=== PATIENT | female | born 1955 | race Caucasian/White ===

== ENCOUNTER 2016-07-16 00:41 | Emergency (ER) | payer MEDICARE, OTHER ==
[~2016-07-16] VITALS: Ht 172.7 cm; Wt 110.0 kg
[2016-07-16 00:41] VITALS: Ht 172.7 cm; Wt 110.0 kg
[2016-07-16] MEDS ORDERED: PROPOFOL 100 ML IV STA (00:50)
[2016-07-16] MEDS ORDERED: SUCCINYLCHOLINE CHLORIDE 100 MG/5 ML SYG IV STA (00:50)
[2016-07-16] MEDS ORDERED: SOD CHLORIDE 0.9% 1,000 ML IV STA (00:50)
[2016-07-16] MEDS ORDERED: ETOMIDATE 20 MG INJ IV STA (00:50)
[2016-07-16 00:57] LABS: ADD SCAN DIFF NO
[2016-07-16 00:59] LABS: ABNORMAL IP MESSAGE 1; BASOPHILS % 0.2 % (0.0-2.0); EOSINOPHILS # 0.3 10^3/ul (0.0-0.5); EOSINOPHILS % 2.1 % (0.0-7.0); HEMATOCRIT 44.3 % (37.0-47.0); LYMPHOCYTES # 7.6 10^3/ul (0.8-2.9); LYMPHOCYTES % 58.8 % (15.0-51.0); MEAN CORPUSCULAR HEMOGLOBIN 31.3 pg (29.0-33.0); MEAN CORPUSCULAR HGB CONC 31.6 g/dl (32.0-37.0); MEAN CORPUSCULAR VOLUME 98.9 fl (82.0-101.0); MEAN PLATELET VOLUME 9.6 fl (7.4-10.4); MONOCYTE # 0.7 10^3/ul (0.3-0.9); MONOCYTES % 5.4 % (0.0-11.0); NEUTROPHIL # 4.3 10^3/ul (1.6-7.5); NEUTROPHILS % 33.3 % (39.0-77.0); PLATELET COUNT 236 10^3/UL (140-415); RED BLOOD COUNT 4.48 10^6/ul (4.20-5.40); RED CELL DISTRIBUTION WIDTH 14.1 % (11.5-14.5); WHITE BLOOD COUNT 12.9 10^3/ul (4.8-10.8)
[2016-07-16 01:05] LABS: INR 1.17; PT RATIO 1.2
[2016-07-16 01:06] LABS: PARTIAL THROMBOPLASTIN TIME 44.2 Sec (25.0-35.0)
--- NOTE | 2016-07-16 01:10 | RADRPT ---
PROCEDURE: CT brain without contrast. CLINICAL INDICATION: Stroke. TECHNIQUE: CT scan of the brain was performed on a multi-detector high-resolution CT scanner. Co ntiguous axial images were obtained from the skull base to the vertex without intravenous contrast. Coronal and sagittal reformatted images were also obtained. Images were reviewed on the PACS works tation. One or more of the following dose reduction techniques were used: - Automated exposure control. - Adjustment of the mA and/or kV according to patient size. - Use of iterative reconstruction technique. Exam CTD/vol = 44.58 mGy. Total exam DLP = 810.25 mGy-cm. COMPARISON: None. FINDINGS: The ventricles and cortical sulci are within normal limits for patient's age. There are no areas of abnormal attenuation within the brain parenchyma. There is no mass effect or midline shift. There is no intracranial hemorrhage or abnormal extra-axial collection. The calvarium is intact. There is no evidence of fracture. There is an opacified right posterior eth moid air cell. There is no mastoid air cells are clear. IMPRESSION: No acute intracranial abnormality identified. A call report was made to Dr. Cruz at 01:06 a.m. .Gab Echols MD, Date Time Electronically viewed and signed by .Gab Echols MD, MD on 07/16/2016 01:09 .T/
[2016-07-16 01:19] LABS: ALBUMIN 4.2 g/dl (3.3-4.9); CHLORIDE 102 mmol/L (97-110)
[2016-07-16 01:20] LABS: SODIUM 138 mmol/L (135-144)
[2016-07-16 01:22] LABS: ALBUMIN/GLOBULIN RATIO 1.16; ANION GAP 18 (8-16); ASPARTATE AMINO TRANSFERASE 38 IU/L (15-46); BILIRUBIN,INDIRECT 0.3 mg/dl (0-1.1); BILIRUBIN,TOTAL 0.3 mg/dl (0.2-1.3); CARBON DIOXIDE 22 mmol/L (21-31); CHOLESTEROL 146 mg/dl (100-200); CREATININE 0.83 mg/dl (0.44-1.00); TOTAL PROTEIN 7.8 g/dl (6.1-8.1)
[2016-07-16 01:23] LABS: ALANINE AMINOTRANSFERASE 11 IU/L (13-69); ALKALINE PHOSPHATASE 112 IU/L (42-121); BLOOD UREA NITROGEN 20 mg/dl (7-20); CHOL/HDL RATIO 2.2 RATIO; GLUCOSE 178 mg/dl (70-220); HDL CHOLESTEROL 66 mg/dl (35-98); TRIGLYCERIDES 120 mg/dl (0-149)
--- NOTE | 2016-07-16 01:27 | RADRPT ---
PROCEDURE: XR Chest. CLINICAL INDICATION: Line placement. TECHNIQUE: Single frontal chest x-ray. COMPARISON: None. FINDINGS: Endotracheal tube tip is at the level of clavicles.. And appearing NG tube is present with the tip below the inferior aspect of the image in the abdomen. Heart is enlarged.. Mild pulmonary vascular congestion.. There is no pleural effusion. There is no pneumothorax. The osseous structures are u nremarkable. IMPRESSION: Endotracheal tube tip above lex. Apparent NG tube tip in the abdomen below the inferior aspect o f the image. Cardiomegaly. Mild CHF. RPTAT: HMVK .Shawn Liz MD, MD Date Time Electronically viewed and signed by .Shawn Liz MD, on 07/16/2016 01:26 .K/
[2016-07-16] MEDS ORDERED: LIDOCAINE 100 MG SYRINGE ONE ×2 (01:32→07:00)
[2016-07-16 01:36] LABS: TROPONIN-I < 0.012 ng/ml (0.00-0.12)
--- NOTE | 2016-07-16 01:55 | ERD ---
ER Documentation Chief Complaint Date/Time DATE: 07/16/16 TIME: 01:53 Chief Complaint HPI This is a 61-year-old female brought in for respiratory distress by EMS. Apparently she had sudden onset of respiratory distress and went apneic and the bag in the field. She became somewhat responsive upon arrival to the ER. Patient was struggling to breathe and was altered mental status a decision was made to intubate. Code stroke was immediately called. Patient taken immediately to CAT scan post intubation. Upon arrival back from CAT scan, however the patient's lost pulses. ACLS was initiated. Multiple attempts were made to resuscitate the patient. Unfortunately the patient was unable to be resuscitated. at bedside. Time of 1:35 PM ROS All systems reviewed and are negative except as per history of present illness. Physical Exam Vitals Vital Signs Date Time Temp Pulse Resp B/P Pulse Ox O2 Delivery O2 Flow Rate FiO2 07/16/16 01:10 100 Physical Exam Const: [] Head: Atraumatic Eyes: Normal Conjunctiva ENT: Normal External Ears, Nose and Mouth. Neck: Full range of motion..~ No meningismus. Resp: Clear to auscultation bilaterally Cardio: Regular rate and rhythm, no murmurs Abd: Soft, non tender, non distended. Normal bowel sounds Skin: No petechiae or rashes Back: No midline or flank tenderness Ext: No cyanosis, or edema Neur: Awake and alert Psych: Normal Mood and Affect Result Diagram: 07/16/16 0045 07/16/16 0045 Results 24 hrs Laboratory Tests Test 07/16/16 00:45 White Blood Count 12.910^3/ul Red Blood Count 4.4810^6/ul Hemoglobin 14.0g/dl Hematocrit 44.3% Mean Corpuscular Volume 98.9fl Mean Corpuscular Hemoglobin 31.3pg Mean Corpuscular Hemoglobin Concent 31.6g/dl Red Cell Distribution Width 14.1% Platelet Count 13641^3/UL Mean Platelet Volume 9.6fl Neutrophils % 33.3% Lymphocytes % 58.8% Monocytes % 5.4% Eosinophils % 2.1% Basophils % 0.2% Nucleated Red Blood Cells % 0.0/100WBC Neutrophils # 4.310^3/ul Lymphocytes # 7.610^3/ul Monocytes # 0.710^3/ul Eosinophils # 0.310^3/ul Basophils # 0.010^3/ul Nucleated Red Blood Cells # 0.010^3/ul Prothrombin Time 15.0Sec Prothrombin Time Ratio 1.2 INR International Normalized Ratio 1.17 Activated Partial Thromboplast Time 44.2Sec Sodium Level 138mmol/L Potassium Level 4.0mmol/L Chloride Level 102mmol/L Carbon Dioxide Level 22mmol/L Anion Gap 18 Blood Urea Nitrogen 20mg/dl Creatinine 0.83mg/dl Glucose Level 178mg/dl Lactic Acid Level 7.5mmol/L Calcium Level 9.0mg/dl Total Bilirubin 0.3mg/dl Direct Bilirubin 0.00mg/dl Indirect Bilirubin 0.3mg/dl Aspartate Amino Transf (AST/SGOT) 38IU/L Alanine Aminotransferase (ALT/SGPT) 11IU/L Alkaline Phosphatase 112IU/L Troponin I < 0.012ng/ml Total Protein 7.8g/dl Albumin 4.2g/dl Globulin 3.60g/dl Albumin/Globulin Ratio 1.16 Triglycerides Level 120mg/dl Cholesterol Level 146mg/dl LDL Cholesterol, Calculated 56mg/dl HDL Cholesterol 66mg/dl Cholesterol/HDL Ratio 2.2RATIO Current Medications Medications (Trade) Dose Ordered Sig/Lamont Route PRN Reason Start Time Stop Time Status Last Admin Dose Admin Sodium Chloride (NS) 1,000 ml @ 1,000 mls/hr Q1H STAT IV 07/16/16 00:50 07/16/16 01:49 DC Succinylcholine Chloride (Anectine Syringe) 200 mg ONCE STAT IV 07/16/16 00:50 07/16/16 00:53 DC Etomidate 20 mg 20 mg ONCE STAT IV 07/16/16 00:50 07/16/16 00:53 DC Propofol (Diprivan) 100 ml @ 0 mls/hr ONCE STAT IV 07/16/16 00:50 07/16/16 00:53 DC Lidocaine (Lidocaine Syg) 100 mg STK-MED ONCE .ROUTE 07/16/16 01:32 07/16/16 01:33 DC Procedures/MDM EKG: Rate/Rhythm: [Normal Sinus Rhythm] QRS, ST, T-waves: [No changes consistent w/ acute ischemia] Impression: [No evidence of ischemia or arrhythmia] Chest X-ray 1V Interpreted by me: Soft Tissue: No acute abnormalities Bones: No acute abnormalities Mediastinum/Cardiac Silhouette/Lungs: ET tube in good position. Medical decision making: This unfortunate female suffered cardiopulmonary arrest. No evidence of stroke on CT. Patient was unable to provide. Time of 135 Critical Care: Time: 45 minutes Treatments/Evaluations: Close monitoring and treatment of unstable vital signs, cardiorespiratory, and neurologic status, while maintaining tight balance of fluid, respiratory, and cardiac interventions. Endotracheal Intubation by me: Pre assessment performed. See preceding note for details. Pre-oxygenation performed with 100% oxygen RSI: Performed w/o complication or hypoxic events. Medications as ordered. Blade: [Mac 4] ET Tube: 7.5 cm Depth: 23 cm at the lip Intubation confirmed by colorimetric CO2, equal breath sounds, quiet over the stomach. Chest X-ray 1V Interpreted by me: 3 cm above the lex ET tube. Normal soft tissue, No pneumothorax. Departure Diagnosis: Primary Impression: Cardiopulmonary arrest Condition: Critical ANDERSON FIELDS Jul 16, 2016 01:55
[2016-07-16] MEDS ORDERED: CA CHLORIDE 10% 10 ML SYRINGE ONE (07:00)
[2016-07-16] MEDS ORDERED: SUCCINYLCHOLINE CHLORIDE 100 MG/5 ML SYG IV ONE (07:00)
[2016-07-16] MEDS ORDERED: ETOMIDATE 20 MG INJ ONE (07:00)
[2016-07-16] MEDS ORDERED: EPINEPHrine 0.1 MG/ML SYG ONE (07:00)
[2016-07-16] MEDS ORDERED: NA BICARBONATE 8.4% 50 ML SYG ONE (07:00)
[2016-07-16] MEDS ORDERED: DEXTROSE 50% 50 ML SYRINGE ONE (07:00)
== END 2016-07-16 04:00 | disposition expired ==
LOC: E/R 00:41
DX: I46.9 Cardiac arrest, cause unspecified (principal); R40.4 Transient alteration of awareness
CPT/HCPCS: 31500; 70450; 71010; 80053; 80061; 83036; 83605; 84484; 85025; 85610; 85730; 92950; 93005; 94002; 99291; J0171; J0330; J2001; J7030